=== PATIENT | female | born 1935 | race Caucasian/White ===

== ENCOUNTER 2019-05-24 08:23 | Inpatient (IN) ==
[2019-05-24] MEDS ORDERED: SODIUM CHLORIDE 0.9% 1,000 ML IV STA (08:43)
[2019-05-24] MEDS ORDERED: PANTOPRAZOLE 40 MG VIAL IV STA (08:43)
[2019-05-24] MEDS ORDERED: ONDANSETRON 4 MG/2 ML VIAL IV PRN ×2 (08:43→10:40)
[2019-05-24 09:06] LABS: Basophils % 0.1 % (0.0-0.8); Eosinophils # 0.1 10*3/uL (0.0-0.87); Eosinophils % 0.2 % (0.00-10.9); Hematocrit 39.5 VOL% (35.7-47.0); Hemoglobin 13.1 GM/DL (12.0-16.0); Immature Granulocytes % 0.5 %; Lymphocytes # 1.6 10*3/uL (1.4-4.0); Lymphocytes % 7.4 % (21.3-54.2); Mean Corpuscular HGB Conc 33.2 GM/DL (32-36); Mean Corpuscular Volume 96.1 FL (87-102); Mean Platelet Volume 12.4 FL (9.6-12.0); Monocytes % 8.6 % (1.7-12.7); Neutrophils % 83.2 % (38.7-73.9); Platelet Count 215 T/CUMM (130-400); Red Blood Count 4.11 MC/CUMM (3.8-5.5); Red Cell Distribution Width 12.8 % (9.3-17.3)
[2019-05-24 09:23] LABS: PT Patient Result 10.5 SECS (9.6-12.2)
[2019-05-24 09:24] LABS: Apearance,Urine CLEAR (Clear); Bilirubin,Urine Negative (Negative); Blood, Urine Negative (Negative); Glucose,Urine (UA) Negative (Negative); Ketones,Urine 20 mg/dL (Negative); Mucus,Urine Few /LPF (Occasional); Nitrite,Urine Negative (Negative); Protein,Urine Negative; Squamous Epithelial Cell,Urine Occasional /HPF (0-10); Urine Color Yellow (Yellow); Urine Specific Gravity 1.018 (1.001-1.035); Urine Urobilinogen < 2.0 EU/DL (0.2-1.0)
[2019-05-24 09:25] LABS: Albumin 4.1 G/DL (3.4-5.0); Bilirubin,Total 0.5 MG/DL (0.2-1.0); Calcium 9.2 MG/DL (8.5-10.1); Osmolality,Calculated 277.8 MOS/KG (273-304); Total Protein 8.1 G/DL (6.4-8.3)
[2019-05-24 09:39] LABS: Band Neutrophils 4 % (0-10); Lymphocytes 6 % (20-55); Total Cells Counted 100
[2019-05-24 09:41] LABS: Poikilocytosis Slight
[2019-05-24 09:42] LABS: Platelet Estimate Adequate
[2019-05-24 09:43] LABS: Segmented Neutrophils 84 % (50-85)
[2019-05-24] MEDS ORDERED: ACETAMINOPHEN 325 MG TABLET PO PRN (10:40)
[2019-05-24] MEDS ORDERED: BISACODYL 5 MG TABLET PO PRN (10:40)
[2019-05-24] MEDS ORDERED: PROMETHAZINE 25 MG/1 ML VIAL IM PRN (10:40)
[2019-05-24] MEDS: PANTOPRAZOLE 40 MG TABLET PO SCH (11:17)
[2019-05-24] MEDS: SODIUM CHLORIDE 0.9% 1,000 ML IV SCH (11:23)
[2019-05-24] MEDS: MORPHINE 4 MG/1 ML VIAL IV PRN ×2 (11:24→18:15)
[2019-05-24] MEDS ORDERED: DEXTROSE 50% 25 GM/50 ML VIAL IV PRN (15:07)
[2019-05-24] MEDS: CIPROFLOXACIN INJ 400 MG in PREMIX 1 EACH IV SCH (15:07)
[2019-05-24] MEDS ORDERED: GLUCAGON 1 MG VIAL IM PRN (15:07)
[2019-05-24] MEDS: metroNIDAZOLE INJ 500 MG in PREMIX 1 EACH IV SCH (16:20)
[2019-05-24] MEDS: OXYBUTYNIN 5 MG TABLET PO SCH ×2 (17:05→21:46)
[2019-05-24] MEDS: INSULIN REGULAR 100 UNIT/ML SUBCUT SCH ×2 (17:06→22:26)
[2019-05-24] MEDS: GABAPENTIN 400 MG CAPSULE PO SCH (21:45)
[2019-05-24] MEDS: METOPROLOL TARTRATE 50 MG TABLET PO SCH (21:45)
[2019-05-25] MEDS: metroNIDAZOLE INJ 500 MG in PREMIX 1 EACH IV SCH ×4 (01:03→22:40)
[2019-05-25] MEDS: CIPROFLOXACIN INJ 400 MG in PREMIX 1 EACH IV SCH ×2 (02:24→13:59)
[2019-05-25 05:06] LABS: Basophils % 0.1 % (0.0-0.8); Eosinophils # 0.2 10*3/uL (0.0-0.87); Eosinophils % 0.9 % (0.00-10.9); Hematocrit 34.9 VOL% (35.7-47.0); Hemoglobin 11.4 GM/DL (12.0-16.0); Immature Granulocytes % 0.5 %; Immature Granulocytes Absolute 0.09 #; Lymphocytes # 3.4 10*3/uL (1.4-4.0); Lymphocytes % 19.6 % (21.3-54.2); Mean Corpuscular HGB Conc 32.7 GM/DL (32-36); Mean Corpuscular Volume 97.8 FL (87-102); Mean Platelet Volume 12.3 FL (9.6-12.0); Neutrophils % 69.9 % (38.7-73.9); Platelet Count 171 T/CUMM (130-400); Red Blood Count 3.57 MC/CUMM (3.8-5.5); Red Cell Distribution Width 13.1 % (9.3-17.3); White Blood Count 17.3 T/CUMM (4-12)
[2019-05-25] MEDS: SODIUM CHLORIDE 0.9% 1,000 ML IV SCH ×3 (05:18→22:40)
[2019-05-25 05:29] LABS: Calcium 7.8 MG/DL (8.5-10.1); Osmolality,Calculated 279.5 MOS/KG (273-304)
[2019-05-25] MEDS: INSULIN REGULAR 100 UNIT/ML SUBCUT SCH ×4 (09:08→22:19)
[2019-05-25] MEDS: OMEGA 3 ACID ETHYL ESTERS 1 GM CAPSULE PO SCH (09:38)
[2019-05-25] MEDS: PANTOPRAZOLE 40 MG TABLET PO SCH (09:38)
[2019-05-25] MEDS: METOPROLOL TARTRATE 50 MG TABLET PO SCH ×2 (09:39→20:50)
[2019-05-25] MEDS: ASPIRIN EC 81 MG TABLET PO SCH (09:39)
[2019-05-25] MEDS: GABAPENTIN 400 MG CAPSULE PO SCH ×2 (09:39→20:50)
[2019-05-25] MEDS: LEVOTHYROXINE 175 MCG TABLET PO SCH (09:40)
[2019-05-25] MEDS: ESTRADIOL 1 MG TABLET PO SCH (09:40)
[2019-05-25] MEDS: OXYBUTYNIN 5 MG TABLET PO SCH ×3 (09:40→20:50)
[2019-05-25] MEDS: amLODIPine 10 MG TABLET PO SCH (09:40)
[2019-05-26] MEDS: CIPROFLOXACIN INJ 400 MG in PREMIX 1 EACH IV SCH ×2 (02:35→13:41)
[2019-05-26 04:44] LABS: Basophils % 0.1 % (0.0-0.8); Eosinophils # 0.4 10*3/uL (0.0-0.87); Eosinophils % 2.5 % (0.00-10.9); Hematocrit 33.4 VOL% (35.7-47.0); Hemoglobin 10.9 GM/DL (12.0-16.0); Immature Granulocytes % 0.5 %; Immature Granulocytes Absolute 0.08 #; Lymphocytes # 2.6 10*3/uL (1.4-4.0); Lymphocytes % 17.9 % (21.3-54.2); Mean Corpuscular HGB Conc 32.6 GM/DL (32-36); Mean Corpuscular Volume 97.7 FL (87-102); Mean Platelet Volume 12.1 FL (9.6-12.0); Monocytes % 8.8 % (1.7-12.7); Neutrophils % 70.2 % (38.7-73.9); Platelet Count 162 T/CUMM (130-400); Red Blood Count 3.42 MC/CUMM (3.8-5.5); Red Cell Distribution Width 13.2 % (9.3-17.3); White Blood Count 14.6 T/CUMM (4-12)
[2019-05-26 05:03] LABS: Calcium 7.9 MG/DL (8.5-10.1); Osmolality,Calculated 281.3 MOS/KG (273-304)
[2019-05-26] MEDS: LEVOTHYROXINE 175 MCG TABLET PO SCH (05:45)
[2019-05-26] MEDS: metroNIDAZOLE INJ 500 MG in PREMIX 1 EACH IV SCH ×3 (06:05→22:55)
[2019-05-26] MEDS ORDERED: MAGNESIUM SULF RIDER 2 GM in PREMIX 1 EACH IV ONE (08:31)
[2019-05-26] MEDS: amLODIPine 10 MG TABLET PO SCH (08:56)
[2019-05-26] MEDS: metFORMIN 500 MG TABLET PO SCH ×2 (08:57→16:35)
[2019-05-26] MEDS: OMEGA 3 ACID ETHYL ESTERS 1 GM CAPSULE PO SCH (08:57)
[2019-05-26] MEDS: OXYBUTYNIN 5 MG TABLET PO SCH ×3 (08:57→21:12)
[2019-05-26] MEDS: GABAPENTIN 400 MG CAPSULE PO SCH ×2 (08:58→21:12)
[2019-05-26] MEDS: METOPROLOL TARTRATE 50 MG TABLET PO SCH ×2 (08:59→21:12)
[2019-05-26] MEDS: ASPIRIN EC 81 MG TABLET PO SCH (09:00)
[2019-05-26] MEDS: ESTRADIOL 1 MG TABLET PO SCH (09:00)
[2019-05-26] MEDS: PANTOPRAZOLE 40 MG TABLET PO SCH (09:00)
[2019-05-26] MEDS: INSULIN REGULAR 100 UNIT/ML SUBCUT SCH ×4 (09:12→21:12)
[2019-05-26] MEDS: SODIUM CHLORIDE 0.9% 1,000 ML IV SCH ×2 (19:07→19:08)
[2019-05-27] MEDS: CIPROFLOXACIN INJ 400 MG in PREMIX 1 EACH IV SCH (01:30)
[2019-05-27 05:15] LABS: Basophils % 0.1 % (0.0-0.8); Eosinophils # 0.4 10*3/uL (0.0-0.87); Eosinophils % 3.3 % (0.00-10.9); Hemoglobin 10.7 GM/DL (12.0-16.0); Immature Granulocytes % 0.5 %; Immature Granulocytes Absolute 0.06 #; Lymphocytes # 2.9 10*3/uL (1.4-4.0); Mean Corpuscular HGB Conc 32.4 GM/DL (32-36); Mean Corpuscular Volume 97.9 FL (87-102); Mean Platelet Volume 12.3 FL (9.6-12.0); Monocytes % 9.9 % (1.7-12.7); Neutrophils % 60.2 % (38.7-73.9); Platelet Count 165 T/CUMM (130-400); Red Blood Count 3.37 MC/CUMM (3.8-5.5); Red Cell Distribution Width 12.9 % (9.3-17.3); White Blood Count 11.2 T/CUMM (4-12)
[2019-05-27 05:41] LABS: Calcium 8.2 MG/DL (8.5-10.1)
[2019-05-27] MEDS: metroNIDAZOLE INJ 500 MG in PREMIX 1 EACH IV SCH (06:05)
[2019-05-27] MEDS: LEVOTHYROXINE 175 MCG TABLET PO SCH (06:05)
[2019-05-27] MEDS ORDERED: MAGNESIUM SULF RIDER 4 GM in PREMIX 1 EACH IV ONE (07:05)
[2019-05-27] MEDS ORDERED: BISACODYL 10 MG SUPP RECTAL ONE (08:15)
[2019-05-27] MEDS: ASPIRIN EC 81 MG TABLET PO SCH (09:23)
[2019-05-27] MEDS: amLODIPine 10 MG TABLET PO SCH (09:23)
[2019-05-27] MEDS: ESTRADIOL 1 MG TABLET PO SCH (09:23)
[2019-05-27] MEDS: metFORMIN 500 MG TABLET PO SCH ×2 (09:23→16:36)
[2019-05-27] MEDS: METOPROLOL TARTRATE 50 MG TABLET PO SCH ×2 (09:24→21:05)
[2019-05-27] MEDS: PANTOPRAZOLE 40 MG TABLET PO SCH (09:24)
[2019-05-27] MEDS: GABAPENTIN 400 MG CAPSULE PO SCH ×2 (09:24→21:04)
[2019-05-27] MEDS: OMEGA 3 ACID ETHYL ESTERS 1 GM CAPSULE PO SCH (09:24)
[2019-05-27] MEDS: INSULIN REGULAR 100 UNIT/ML SUBCUT SCH ×4 (09:25→21:08)
[2019-05-27] MEDS: OXYBUTYNIN 5 MG TABLET PO SCH ×3 (09:26→21:05)
[2019-05-27] MEDS: POLYETHYLENE GLYCOL POWDER 17 GM PACK PO SCH (09:32)
[2019-05-27] MEDS: MAGNESIUM OXIDE 400 MG TABLET PO SCH ×2 (09:42→13:40)
[2019-05-27] MEDS ORDERED: BISACODYL 5 MG TABLET PO ONE (12:15)
[2019-05-27] MEDS: metroNIDAZOLE 500 MG TABLET PO SCH ×2 (13:41→21:05)
[2019-05-27] MEDS: CIPROFLOXACIN 500 MG TABLET PO SCH (21:04)
[2019-05-28] MEDS: LEVOTHYROXINE 175 MCG TABLET PO SCH (05:31)
[2019-05-28] MEDS: metroNIDAZOLE 500 MG TABLET PO SCH ×2 (05:31→15:05)
[2019-05-28 05:33] LABS: Basophils % 0.1 % (0.0-0.8); Eosinophils # 0.3 10*3/uL (0.0-0.87); Eosinophils % 2.5 % (0.00-10.9); Hematocrit 34.6 VOL% (35.7-47.0); Hemoglobin 11.6 GM/DL (12.0-16.0); Immature Granulocytes % 0.4 %; Immature Granulocytes Absolute 0.05 #; Lymphocytes # 3.3 10*3/uL (1.4-4.0); Lymphocytes % 27.3 % (21.3-54.2); Mean Corpuscular HGB Conc 33.5 GM/DL (32-36); Mean Corpuscular Volume 95.3 FL (87-102); Mean Platelet Volume 12.5 FL (9.6-12.0); Monocytes % 14.4 % (1.7-12.7); Neutrophils % 55.3 % (38.7-73.9); Platelet Count 206 T/CUMM (130-400); Red Blood Count 3.63 MC/CUMM (3.8-5.5); Red Cell Distribution Width 12.7 % (9.3-17.3); White Blood Count 12.2 T/CUMM (4-12)
[2019-05-28 05:49] LABS: Calcium 8.8 MG/DL (8.5-10.1); Osmolality,Calculated 283.1 MOS/KG (273-304)
[2019-05-28] MEDS ORDERED: MAGNESIUM SULF RIDER 2 GM in PREMIX 1 EACH IV PRN (07:54)
[2019-05-28] MEDS ORDERED: MAGNESIUM SULF RIDER 4 GM in PREMIX 1 EACH IV PRN (07:54)
[2019-05-28] MEDS: INSULIN REGULAR 100 UNIT/ML SUBCUT SCH ×2 (08:17→12:55)
[2019-05-28] MEDS: OMEGA 3 ACID ETHYL ESTERS 1 GM CAPSULE PO SCH (08:21)
[2019-05-28] MEDS: ASPIRIN EC 81 MG TABLET PO SCH (08:21)
[2019-05-28] MEDS: METOPROLOL TARTRATE 50 MG TABLET PO SCH (08:21)
[2019-05-28] MEDS: OXYBUTYNIN 5 MG TABLET PO SCH ×2 (08:21→15:24)
[2019-05-28] MEDS: metFORMIN 500 MG TABLET PO SCH (08:21)
[2019-05-28] MEDS: amLODIPine 10 MG TABLET PO SCH (08:21)
[2019-05-28] MEDS: ESTRADIOL 1 MG TABLET PO SCH (08:21)
[2019-05-28] MEDS: PANTOPRAZOLE 40 MG TABLET PO SCH (08:22)
[2019-05-28] MEDS: CIPROFLOXACIN 500 MG TABLET PO SCH (08:22)
[2019-05-28] MEDS: GABAPENTIN 400 MG CAPSULE PO SCH (08:22)
[2019-05-28] MEDS: POLYETHYLENE GLYCOL POWDER 17 GM PACK PO SCH (08:26)
[2019-05-28] MEDS: POTASSIUM CHLORIDE 20 MEQ TABLET PO PRN ×2 (08:28→10:31)
[2019-05-28] MEDS ORDERED: MAGNESIUM CHLORIDE 64 MG TABLET PO SCH (09:00)
[2019-05-28] MEDS ORDERED: SODIUM PHOSPHATE ENEMA 133 ML BOTTLE RECTAL PRN (09:23)
[2019-05-28 11:38] VITALS: BP 136/71
[2019-05-28] MEDS ORDERED: SODIUM PHOSPHATE ENEMA 133 ML BOTTLE RECTAL ONE (13:22)
== END 2019-05-28 15:23 | disposition home or self-care (01) | DRG 394 ==
LOC: N.ED 08:23 → N.EDINP 08:23 → SUATTDRO 10:40 → N.EDINP 12:34 → N.2W 12:54 → N.5E 05-25 14:25
PROVIDERS: ADMIT Internal Medicine; ATTEND Hospitalist